=== PATIENT | male | born 1970 | race Caucasian/White ===

== ENCOUNTER 2021-05-30 00:37 | Emergency (ER) | payer MEDICAID, SELFPAY ==
[2021-05-30 00:38] VITALS: BP 166/106; BP 186/98; PULSE 81; RESP 16; TEMP 36.6; O2SAT 98; BMI 29.0
--- NOTE | 2021-05-30 02:08 | EKG12_ITS ---
Test Reason : DYSRHYTHMIA Blood Pressure : / mmHG Vent. Rate : 078 BPM Atrial Rate : 078 BPM P-R Int : 152 ms QRS Dur : 090 ms QT Int : 410 ms P-R-T Axes : 073 066 042 degrees QTc Int : 467 ms Normal sinus rhythm Normal ECG Confirmed by MIREILLE TOBAR, MARY ([id number]), visual effects editor OLVIN MORATAYA ([id number]) on 06/01/2021 8:59:50 AM Referred By: ROSS Confirmed By:MICHELLE KENDRICK MD
[2021-05-30] MEDS: amLODIPine 5 MG Tablet PO (02:25)
[2021-05-30] MEDS: cloNIDine HCl 0.1 MG Tablet PO (02:25)
[2021-05-30 02:29] LABS: Absolute Lymphocyte Count 3.33 X10^3/uL (0.83-4.51); Absolute Neutrophil Count 6.6 X10^3/uL (2.0-7.7); Basophil# 0.04 X10^3/uL; Basophil% 0.4 % (0-1); Eosinophil# 0.24 X10^3/uL; Eosinophils% 2.1 % (0-5); Hematocrit 44.7 % (40-54); Hemoglobin 15.2 g/dL (13.0-16.5); Lymphocyte # 3.33 X10^3/ul (0.83-4.51); Lymphocyte % 29.8 % (19-41); Mean Corpuscular Hgb 30.8 pg (27.0-32.0); Mean Corpuscular Volume 90.5 fL (80-94); Mean Platelet Vol. 9.6 fl (6.2-12.0); Monocyte# 0.94 X10^3/uL; Monocyte% 8.4 % (0-10); NRBC Flagged by Analyzer 0 % (0-5); Neutrophil # 6.59 X10^3/uL (2.7-7.7); Platelet Count 250 K/mm3 (150-450); RBC Distribution Width CV 14.1 % (11.6-14.6); RBC Distribution Width SD 46.6 fl (35.1-43.9); Red Blood Count 4.94 M/mm3 (4.6-6.2); White Blood Count 11.2 K/mm3 (4.4-11.0)
[2021-05-30 02:44] VITALS: RESP 16
[2021-05-30 02:49] LABS: Anion Gap 7 (5-15); BUN 11 mg/dL (7-18); BUN/Creat Ratio 13.1 RATIO (10-20); Calcium,Total 9.1 mg/dL (8.5-10.1); Chloride 106 mmol/L (98-107); Creatinine, Serum 0.84 mg/dL (0.70-1.30); EST Glomerular Filtration Rate 102 mL/min (>60); Est Glom Filt Rate - Afr Amer 124 mL/min (>60); Estimated Creatinine Clearance 124.35 ml/min; Glucose 112 mg/dL (74-106); Magnesium 2.1 mg/dL (1.6-2.6); Potassium 3.9 mmol/L (3.5-5.1); Sodium Level 139 mmol/L (136-145); Troponin-I HS 14 pg/mL (3.0-78.0)
[2021-05-30 03:08] VITALS: BP 160/100; PULSE 72; RESP 18; O2SAT 96
[2021-05-30 03:10] VITALS: BP 145/88
--- NOTE | 2021-05-30 03:13 | EDS_ITS ---
HPI History of Present Illness Chief Complaint: Hypertension Narrative Narrative: Patient is a 50-year-old male with past medical history of hypertension who states he is to take lisinopril and Norvasc. He states he ran out of his Norvasc approximately 1 month ago. He states that today he felt just off and also noticed some numbness and tingling in his legs and therefore checked his blood pressure and it was elevated. Secondary to this he presents for evaluation. Patient reports smoking approximately 1 pack a day which is normal for him otherwise denies any excessive stimulant use or illicit drug use [facility] Medical History (Updated 05/30/21 @ 03:[address] Ebenezer Zuniga, DO) GERD (gastroesophageal reflux disease) Hypertension SVT (supraventricular tachycardia) Home Medications amlodipine [Norvasc] 5 mg PO DAILY 05/30/21 [History Last Taken Unknown] amlodipine [Norvasc] 5 mg PO DAILY #30 tab 05/30/21 [Rx Last Taken Unknown] esomeprazole magnesium [Nexium] 40 mg PO DAILY 05/30/21 [History Last Taken Unknown] lisinopril 40 mg PO DAILY 05/30/21 [History Last Taken Unknown] lisinopril 40 mg PO DAILY #30 tab 05/30/21 [Rx Last Taken Unknown] Allergy/AdvReac Type Severity Reaction Status Date / Time No Known Allergies Allergy Verified 05/30/21 00:41 Social History Smoking Status: Current every day smoker tobacco type: cigarettes ROS ROS ED Constitutional Constitutional ED: Denies chills or fever(s) ENT ENT ED: Denies sore throat Cardiovascular Cardiovascular: Denies chest pain Respiratory/Chest Respiratory/Chest: Denies cough or dyspnea Gastrointestinal Gastrointestinal: Denies abdominal pain, diarrhea, nausea or vomiting Genitourinary Genitourinary ED: Denies dysuria Musculoskeletal Musculoskeletal: Denies myalgias Integumentary Denies rash Neurologic Neurologic: Reports paresthesias; Denies headache(s) Hematologic/Lymphatic Hematologic/Lymphatic: Denies easy bleeding or easy bruising EXAM Physical Exam Const Vital Signs: 05/30/21 00:38 05/30/21 02:44 05/30/21 03:08 Temperature 97.9 F Temperature Source Temporal Pulse Rate 81 72 Respiratory Rate 16 16 18 Blood Pressure 166/106 H 160/100 H Blood Pressure Mean 126 120 Pulse Ox 98 96 Oxygen Delivery Method Room Air Room Air 05/30/21 03:10 05/30/21 03:19 Temperature Temperature Source Pulse Rate 79 Respiratory Rate 18 Blood Pressure 145/88 H 145/88 H Blood Pressure Mean 107 Pulse Ox 97 Oxygen Delivery Method Positive well nourished and well developed General Appearance ED: well developed HEENT Reports moist mucous membranes Eyes PERRL and EOMs intact bilaterally Neck full ROM, No nuchal rigidity and supple Resp normal respiratory effort and clear to auscultation bilaterally Cardio regular rate and regular rhythm Cardio Narrative: Radial pulses are plus 2 out of 4 bilaterally are equal and symmetric GI normal to inspection, nondistended, normoactive bowel sounds, soft to palpation, non-tender and non-distended GI Narrative: No voluntary guarding or rigidity no pulsatile mass Auscultation: normoactive bowel sounds Palpation: soft Extremity normal to inspection Neuro oriented x3 and CN's II-XII intact bilaterally Neuro Narrative: Cranial nerves II through XII are grossly intact with no focal neurologic deficit. NIH stroke scale score of 0 Sensorium / Orientation: alert Psych mental status grossly normal Skin no rashes or lesions noted MDM MDM MDM Narrative Medical decision making narrative: Patient presented to the ER hypertensive but otherwise had no signs of endorgan damage. I felt that he most likely had persistent hypertension because he is not been taking his Norvasc along with his lisinopril. However as he did report feeling some paresthesias in his legs I elected to perform basic laboratory studies. Blood work correlated with no signs of endorgan damage and after he was given his Norvasc his blood pressure did improve. On reevaluation he is resting comfortably neurologic exam remains normal with a stroke scale score of 0. Therefore this time I do not feel there is need for further work-up and patient can be prescribed his Norvasc and discharged home Lab Data Attestation: I reviewed the patient's lab results. Labs: Laboratory Results - last 24 hr 05/30/21 05/30/21 02:20 02:20 WBC 11.2 H RBC 4.94 Hgb 15.2 Hct 44.7 MCV 90.5 MCH 30.8 MCHC 34.0 RDW Std Deviation 46.6 H RDW Coeff of [place] 14.1 Plt Count 250 MPV 9.6 Immature Gran % (Auto) 0.300 Neut % (Auto) 59.0 Lymph % (Auto) 29.8 [place] % (Auto) 8.4 Eos % (Auto) 2.1 Baso % (Auto) 0.4 Absolute Neuts (auto) 6.6 Absolute Lymphs (auto) 3.33 Nucleated RBC % 0 Sodium 139 Potassium 3.9 Chloride 106 Carbon Dioxide 26.0 Anion Gap 7 BUN 11 Creatinine 0.84 Estim Creat Clear Calc 124.35 Est GFR (MDRD) Af Amer 124 Est GFR (MDRD) Non-Af 102 BUN/Creatinine Ratio 13.1 Glucose 112 H Calcium 9.1 Magnesium 2.1 Troponin I High Sens 14 Discharge Plan Triage Chief Complaint: Hypertension ED Provider: Ebenezer Zuniga Dx/Rx/DC Orders Clinical Impression: Accelerated hypertension Instructions: Controlling High Blood Pressure Prescriptions: New amlodipine [Norvasc] 5 mg tablet 5 mg PO DAILY Qty: 30 RF: 0 lisinopril 40 mg tablet 40 mg PO DAILY Qty: 30 RF: 0 No Action esomeprazole magnesium [Nexium] 40 mg Capsule,Delayed Release(Dr/Ec) 40 mg PO DAILY RF: 0 lisinopril 40 mg Tablet 40 mg PO DAILY RF: 0 amlodipine [Norvasc] 5 mg Tablet 5 mg PO DAILY RF: 0 Primary Care Provider: Alfie Arroyo Referrals: Alfie Arroyo MD [Primary Care Provider] - Disposition Disposition: Home, Self Care Discharge Date/Time: 05/30/21 03:19
[2021-05-30 03:19] VITALS: BP 145/88; PULSE 79; RESP 18; O2SAT 97
--- NOTE | 2021-05-30 11:09 | CM.ED ---
SOCIAL WORK Referral Source: seasonal recruiterJohn Reason for Consult: Resources Received referral to follow up with patient regarding resources as patient lost insurance and PCP. Call to patient. Introduced role and reason for referral. Patient provided information on [facility] [employer] and [facility]. Patient to follow up on Tuesday. Patient given this worker's contact information for any further needs. Anselmo Brody, TREASURER, [employer]
== END 2021-05-30 03:19 | disposition home or self-care (01) ==
PROVIDERS: Emergency Provider Emergency Medicine; PCP Family Medicine
DX: I10 Essential (primary) hypertension (principal); K21.9 Gastro-esophageal reflux disease without esophagitis; I47.1 Supraventricular tachycardia; Z79.899 Other long term (current) drug therapy; F17.210 Nicotine dependence, cigarettes, uncomplicated
CPT/HCPCS: 80048; 83735; 84484; 85025; 93005; 99284; A4216